=== PATIENT | male | born 1995 | race Caucasian/White ===

== ENCOUNTER → 2018-10-11 | Outpatient (CLI) | payer OTHER ==
--- NOTE | 2018-10-11 17:21 | XR ---
EXAMINATION TYPE: XR abdomen 2V DATE OF EXAM: 10/11/2018 COMPARISON: NONE HISTORY: Stomach pain TECHNIQUE: 3 views upright and supine FINDINGS: There is no sign of intestinal obstruction or pneumoperitoneum. Fecal pattern is normal. Aida ng bases are clear. There are no pathologic calcifications. IMPRESSION: Nonacute abdomen.
== END | disposition home or self-care (01) ==
LOC: RADXRMAIN 16:28
PROVIDERS: ATTEND Family Medicine
DX: R19.8 Other specified symptoms and signs involving the digestive system and abdomen (principal)
CPT/HCPCS: 74019

== ENCOUNTER 2018-10-23 19:28 | Emergency (ER) | payer OTHER ==
[2018-10-23] MEDS ORDERED: ONDANSETRON 4 MG/2 ML VIAL IVP STA (21:41)
[2018-10-23] MEDS ORDERED: SODIUM CHLORIDE 0.9% 500 ML 500 ML IV STA (21:41)
[2018-10-23 21:58] LABS: HCT 45.4 % (39.0-53.0); HGB 15.1 gm/dL (13.0-17.5); MCH 30.1 pg (25.0-35.0); MCHC 33.4 g/dL (31.0-37.0); MCV 90.3 fL (80.0-100.0); Mean Platelet Volume 7.3; Platelet Count 223 k/uL (150-450); RBC 5.03 m/uL (4.30-5.90); RDW 15.1 % (11.5-15.5); WBC 9.6 k/uL (3.8-10.6)
[2018-10-23 22:07] LABS: ALT 48 U/L (21-72); AST 36 U/L (17-59); African American GFR (CKD) >90 (>60 ml/min/1.73 sqM); Albumin 4.5 g/dL (3.5-5.0); Alkaline Phosphatase 88 U/L (38-126); Amylase 39 U/L (30-110); Anion Gap 12 mmol/L; Blood Urea Nitrogen 17 mg/dL (9-20); Calcium 9.3 mg/dL (8.4-10.2); Carbon Dioxide 22 mmol/L (22-30); Chloride 105 mmol/L (98-107); Glucose 125 mg/dL (74-99); Potassium 4.1 mmol/L (3.5-5.1); Sodium 139 mmol/L (137-145); Total Bilirubin 0.4 mg/dL (0.2-1.3); Total Protein 7.2 g/dL (6.3-8.2)
--- NOTE | 2018-10-23 22:35 | XR ---
EXAM: XR Abdomen, 2 Views CLINICAL HISTORY: Pain TECHNIQUE: Frontal view of the abdomen/pelvis with upright view of the abdomen. COMPARISON: CXR dated 10/11/18 FINDINGS: Intraperitoneal space: No free air. Gastrointestinal tract: Unremarkable. No dilation. Bones/joints: Unremarkable. IMPRESSION: Normal abdominal x-rays.
[2018-10-23 22:36] LABS: Appearance,Urine Clear (Clear); Bilirubin,Urine Negative (Negative); Blood,Urine Small (Negative); Color,Urine Yellow; Glucose,Urine (UA) Negative (Negative); Ketones,Urine Negative (Negative); Leukocyte Esterase,Urine Negative (Negative); Mucus,Urine Many /hpf; Nitrite,Urine Negative (Negative); Protein,Urine 1+ (Negative); RBC,Urine 9 /hpf (0-5); Specific Gravity,Urine 1.042 (1.001-1.035); Squamous Epithelial Cell,Urine 1 /hpf (0-4); Urobilinogen,Urine <2.0 mg/dL (<2.0); WBC,Urine 6 /hpf (0-5)
[2018-10-23] MEDS ORDERED: IBUPROFEN 600 MG TAB PO STA (23:33)
--- NOTE | 2018-10-23 23:47 | ED ---
General Adult HPI - General Chief complaint: Nausea/Vomiting/Diarrhea Stated complaint: Diarrhea, fever Time Seen by Provider: 10/23/18 21:19 Source: patient Mode of arrival: ambulatory Limitations: language barrier - History of Present Illness Initial comments: Patient is a 23-year-old autistic male presents to the emergency Department with his mother for nausea vomiting diarrhea. patient is nonverbal. Mother reports the patient has developed diarrhea approximately 2 weeks ago along with mild abdominal bloating. mOther states the patient has not complained of any abdominal pain. Mother denies any hematuria, hematochezia or melena. Mother reports normal oral intake. Mother reports the patient has developed multiple episodes of vomiting today but denies hematemesis. Mother reports giving the patient Pepto-Bismol few minutes prior to vomiting. Mother denies fevers, night sweats or chills. Mother denies any recent international travels. Mother reports all his vaccinations are up-to-date. - Related Data Home Medications Medication Instructions Recorded Confirmed Escitalopram [Lexapro] 15 mg PO DAILY 10/23/18 10/23/18 Previous Rx's Medication Instructions Recorded Loperamide HCl [Imodium] 7.5 ml PO BID #150 ml 10/23/18 Ondansetron Odt [Zofran Odt] 4 mg PO Q8HR PRN #10 tab 10/23/18 Allergies Allergy/AdvReac Type Severity Reaction Status Date / Time Sulfa (Sulfonamide Allergy Rash/Hives Verified 10/23/18 21:21 Antibiotics) Review of Systems ROS Statement: Those systems with pertinent positive or pertinent negative responses have been documented in the HPI. ROS Other: All systems not noted in ROS Statement are negative. Past Medical History Additional Past Medical History / Comment(s): autism History of Any Multi-Drug Resistant Organisms: None Reported Past Surgical History: No Surgical Hx Reported Past Psychological History: No Psychological Hx Reported Smoking Status: Never smoker Past Alcohol Use History: None Reported Past Drug Use History: None Reported General Exam Limitations: language barrier (Patient is nonverbal) General appearance: alert, in no apparent distress Head exam: Present: atraumatic, normocephalic, normal inspection Eye exam: Present: normal appearance, PERRL, EOMI Pupils: Present: normal accommodation ENT exam: Present: normal exam, normal oropharynx, mucous membranes moist, TM's normal bilaterally, normal external ear exam Neck exam: Present: normal inspection, full ROM. Absent: lymphadenopathy Respiratory exam: Present: normal lung sounds bilaterally Cardiovascular Exam: Present: tachycardia, normal heart sounds GI/Abdominal exam: Present: soft, normal bowel sounds. Absent: tenderness, guarding, rebound, rigid Extremities exam: Present: normal inspection, full ROM Back exam: Present: normal inspection, full ROM. Absent: CVA tenderness (R), CVA tenderness (L) Neurological exam: Present: alert, oriented X3 Psychiatric exam: Present: normal affect, normal mood Skin exam: Present: warm, intact, normal color Course Vital Signs 10/23/18 10/23/18 19:57 22:01 Temperature 101.3 F H 99.0 F Pulse Rate 115 H 101 H Respiratory 20 20 Rate Blood Pressure 106/65 135/83 O2 Sat by Pulse 95 100 Oximetry Medical Decision Making - Medical Decision Making Patient is a 23-year-old autistic, nonverbal male presenting to emergency Department with nausea vomiting diarrhea. On initial evaluation patient was febrile and had decreased blood pressure. CBC, CMP, UA, blood cultures and lactate were obtained. All are unremarkable. UA is indicative of increased specific gravity but I'm suspecting that to be related to mild dehydration from the continues diarrhea. c. diff and stool cultures were also obtained. KUB is unremarkable. Patient was given a liter of fluids, Imodium and Zofran. On reevaluation patient was afebrile and blood pressure was normal range. Patient will be discharged with Imodium and Zofran. Mother advised to give patient oral rehydration, especially electrolytes. Mother advised to follow-up with primary care. Strict return parameters were thoroughly discussed with mother who is understanding and agreeable. Case discussed with physician. - Lab Data Result diagrams: 10/23/18 21:26 10/23/18 21:26 Lab Results 10/23/18 10/23/18 10/23/18 Range/Units 21:26 21:26 21:26 WBC 9.6 (3.8-10.6) k/uL RBC 5.03 (4.30-5.90) m/uL Hgb 15.1 (13.0-17.5) gm/dL Hct 45.4 (39.0-53.0) % MCV 90.3 (80.0-100.0) fL MCH 30.1 (25.0-35.0) pg MCHC 33.4 (31.0-37.0) g/dL RDW 15.1 (11.5-15.5) % Plt Count 223 (150-450) k/uL Sodium 139 (137-145) mmol/L Potassium 4.1 (3.5-5.1) mmol/L Chloride 105 (98-107) mmol/L Carbon Dioxide 22 (22-30) mmol/L Anion Gap 12 mmol/L BUN 17 (9-20) mg/dL Creatinine 0.89 (0.66-1.25) mg/dL Est GFR (CKD-EPI)AfAm >90 (>60 ml/min/1.73 sqM) Est GFR (CKD-EPI)NonAf >90 (>60 ml/min/1.73 sqM) Glucose 125 H (74-99) mg/dL Plasma Lactic Acid Td 1.7 (0.7-2.0) mmol/L Calcium 9.3 (8.4-10.2) mg/dL Total Bilirubin 0.4 (0.2-1.3) mg/dL AST 36 (17-59) U/L ALT 48 (21-72) U/L Alkaline Phosphatase 88 (38-126) U/L Total Protein 7.2 (6.3-8.2) g/dL Albumin 4.5 (3.5-5.0) g/dL Amylase 39 (30-110) U/L Lipase 65 (23-300) U/L Urine Color Urine Appearance (Clear) Urine pH (5.0-8.0) Ur Specific [place] (1.001-1.035) Urine Protein (Negative) Urine Glucose (UA) (Negative) Urine Ketones (Negative) Urine Blood (Negative) Urine Nitrite (Negative) Urine Bilirubin (Negative) Urine Urobilinogen (<2.0) mg/dL Ur Leukocyte Esterase (Negative) Urine RBC (0-5) /hpf Urine WBC (0-5) /hpf Ur Squamous Epith Cells (0-4) /hpf Urine Mucus (None) /hpf 10/23/18 Range/Units 22:00 WBC (3.8-10.6) k/uL RBC (4.30-5.90) m/uL Hgb (13.0-17.5) gm/dL Hct (39.0-53.0) % MCV (80.0-100.0) fL MCH (25.0-35.0) pg MCHC (31.0-37.0) g/dL RDW (11.5-15.5) % Plt Count (150-450) k/uL Sodium (137-145) mmol/L Potassium (3.5-5.1) mmol/L Chloride (98-107) mmol/L Carbon Dioxide (22-30) mmol/L Anion Gap mmol/L BUN (9-20) mg/dL Creatinine (0.66-1.25) mg/dL Est GFR (CKD-EPI)AfAm (>60 ml/min/1.73 sqM) Est GFR (CKD-EPI)NonAf (>60 ml/min/1.73 sqM) Glucose (74-99) mg/dL Plasma Lactic Acid Td (0.7-2.0) mmol/L Calcium (8.4-10.2) mg/dL Total Bilirubin (0.2-1.3) mg/dL AST (17-59) U/L ALT (21-72) U/L Alkaline Phosphatase (38-126) U/L Total Protein (6.3-8.2) g/dL Albumin (3.5-5.0) g/dL Amylase (30-110) U/L Lipase (23-300) U/L Urine Color Yellow Urine Appearance Clear (Clear) Urine pH 6.0 (5.0-8.0) Ur Specific [place] 1.042 H (1.001-1.035) Urine Protein 1+ H (Negative) Urine Glucose (UA) Negative (Negative) Urine Ketones Negative (Negative) Urine Blood Small H (Negative) Urine Nitrite Negative (Negative) Urine Bilirubin Negative (Negative) Urine Urobilinogen <2.0 (<2.0) mg/dL Ur Leukocyte Esterase Negative (Negative) Urine RBC 9 H (0-5) /hpf Urine WBC 6 H (0-5) /hpf Ur Squamous Epith Cells 1 (0-4) /hpf Urine Mucus Many H (None) /hpf Disposition Clinical Impression: Diarrhea Disposition: HOME SELF-CARE Condition: Stable Instructions (If sedation given, give patient instructions): Acute Diarrhea (ED) Additional Instructions: Please see prescribe medication as directed. Please follow with primary care. Please return to emergency department if symptoms worsen. Please drink lot of fluids. Prescriptions: Loperamide HCl [Imodium] 7.5 ml PO BID #150 ml Ondansetron Odt [Zofran Odt] 4 mg PO Q8HR PRN #10 tab PRN Reason: Nausea Is patient prescribed a controlled substance at d/c from ED?: No Referrals: Hawa Tomlin MD [Primary Care Provider] - 1-2 days Time of Disposition: 23:47
[2018-10-24 00:34] VITALS: BP 141/73; PULSE 98; TEMP 98.7
[2018-10-24] MEDS ORDERED: LOPERAMIDE 2 MG CAP PO STA (00:42)
[2018-10-24 00:57] VITALS: RESP 18
== END 2018-10-24 00:57 | disposition home or self-care (01) ==
LOC: EC 19:28
DX: R19.7 Diarrhea, unspecified (principal); R11.2 Nausea with vomiting, unspecified; R50.9 Fever, unspecified; F84.0 Autistic disorder; Z79.899 Other long term (current) drug therapy; Z88.2 Allergy status to sulfonamides
CPT/HCPCS: 36415; 80053; 82150; 83605; 83690; 85027; 81001; 87040; 87493; 74018; 99284; 96374; J2405; 87045; 87046; 87324

== ENCOUNTER 2018-11-15 07:37 | Day surgery (SDC) | payer OTHER ==
[2018-11-10 08:08] VITALS: BMI 30.5
[~2018-11-15 07:37] MED LIST: LACTATED RINGERS 1,000 ML IV SCH; LIDOCAINE 1% 20 ML VIAL (10MG/ML) FOR IV START INTRADERMA PRN
[2018-11-15] MEDS ORDERED: LIDOCAINE 1% INJ 10MG/ML (20 ML MDV) ONE (08:00)
[2018-11-15] MEDS ORDERED: PROPOFOL 10 MG/ML 20 ML VIAL IV ONE (08:00)
[2018-11-15] MEDS ORDERED: MIDAZOLAM 2 MG/2 ML VIAL ONE (08:00)
[2018-11-15] MEDS ORDERED: fentaNYL (PF) 50 MCG/ML 2 ML AMP ONE (08:00)
[2018-11-15 08:07] VITALS: TEMP 97.9
--- NOTE | 2018-11-15 08:32 | P.PCN ---
Date of Procedure: 11/15/18 Procedure(s) Performed: PREOPERATIVE DIAGNOSIS: Abdominal pain, bloody stools POSTOPERATIVE DIAGNOSIS: Gastritis, rea colitis PROCEDURE: 1. EGD with biopsy 2. Colonoscopy with biopsy and cultures ANESTHESIA: MAC SURGEON: Boubacar Bella M.D. SPECIMENS: Duodenum, antrum, random colon ENDOSCOPIC PROCEDURE: The patient was on the endoscopy table in the left decubitus position. The Olympus gastroscope was inserted into the oropharynx and passed under direct visualization to the region of the third portion of the duodenum. From that point the scope was slowly withdrawn inspecting all surfaces carefully. There were no neoplastic inflammatory or polypoid lesions throughout the duodenum. A biopsy of the duodenum took place. The pylorus was widely patent. The stomach was carefully inspected. There was gastritis seen. A biopsy of the antrum took place to rule out H. pylori. Retroflexion revealed a normal hiatus. The esophagus was then carefully examined. There were no neoplastic inflammatory or polypoid lesions throughout the visualized esophagus. The patient was kept on the endoscopy table in the left decubitus position. The Olympus colonoscope was inserted into the anus and passed under direct visualization to the base of the cecum. The appendiceal orifice was visualized. From that point the scope was slowly withdrawn inspecting all surfaces carefully. The patient had evidence of significant colitis involving the majority of the colon. The cecum and proximal ascending colon appeared spared. There were superficial erosions and circumferential erythema with induration and friability. No deep ulcerations or polypoid lesions were seen. Random biopsies took place throughout the entire colon. Cultures were taken as well and sent for C. diff over and parasites and stool culture. There was a small amount of blood present within the lumen prior to biopsies. Digital rectal examination was normal. The patient was taken to the recovery room in stable condition per anesthesia guidelines. RECOMMENDATIONS: We'll start anti-inflammatories. We'll make appointment to see GI. Await stool studies.
[2018-11-15 09:29] VITALS: BP 120/78; PULSE 85; RESP 18
== END 2018-11-15 10:22 | disposition home or self-care (01) ==
LOC: ORWHC2ENDO 07:37
PROVIDERS: ATTEND Surgery
DX: K29.70 Gastritis, unspecified, without bleeding (principal); K52.9 Noninfective gastroenteritis and colitis, unspecified; F84.0 Autistic disorder; Z88.2 Allergy status to sulfonamides; Z79.899 Other long term (current) drug therapy
CPT/HCPCS: 45380; 43239; 88305; 87324; 87045; 87329; 87328; 87046; J2250; J2001; J3010; J2704

== ENCOUNTER → 2018-12-12 | Outpatient (CLI) | payer OTHER ==
--- NOTE | 2018-12-12 08:33 | US ---
EXAMINATION TYPE: US abdomen complete DATE OF EXAM: 12/12/2018 COMPARISON: NONE CLINICAL HISTORY: Abd distension R14.0. Non-verbal pt, parent states ABD distention, weight gain, rec ently diagnosed with ulcerative colitis EXAM MEASUREMENTS: Liver Length: 14.9 cm Gallbladder Wall: 0.1 cm CBD: 0.3 cm Spleen: 12.7 cm Right Kidney: 11.2 x 5.2 x 4.3 cm Left Kidney: 11.5 x 5.6 x 5.7 cm *Pt very gassy, limited exam Pancreas: Obscured by bowel gas Liver: Visualized portions appeared wnl, much was obscured by overlying bowel gas Gallbladder: wnl, only scanned supine due to non-verbal patient Evidence for sonographic Iglesias's sign: No CBD: wnl Spleen: wnl Right Kidney: No evidence of hydro, appeared wnl Left Kidney: No evidence of hydro, appeared wnl Upper IVC: wnl Abd Aorta: mid and distal wnl, proximal portion obscured by overlying bowel gas The visualized portion of liver is homogenous. The intrahepatic portion of the IVC and visualized ab dominal aorta are within normal limits. There is no evidence of cholelithiasis. Common bile duct is unremarkable. The pancreas is suboptimally seen on images saved secondary to shadowing from overlyi ng bowel gas.. The spleen is unremarkable. Kidneys are symmetric and free of hydronephrosis. No re nal lesions are seen. IMPRESSION: Suboptimal study without acute finding or ascites visualized.
== END | disposition home or self-care (01) ==
LOC: RADUSWWP 06:58
PROVIDERS: ATTEND Internal Medicine Gastroenterology
DX: R19.00 Intra-abdominal and pelvic swelling, mass and lump, unspecified site (principal)
CPT/HCPCS: 76700